=== PATIENT | female | born 1995 | race Caucasian/White ===

== ENCOUNTER 2024-03-25 13:45 | Outpatient (CLI) | payer BC, SELFPAY ==
--- OUTSIDE RECORDS SUMMARY | 2024-03-25 13:57 | XMS_ITS | Clinical Summary ---
Author Organization [facility] Address [address] [place] [address] Care Team Providers Care Cross Tie Cutter Name Role Phone Gomez Hubbard PA-C Primary Care Provider Allergies Active Allergy Reactions Criticality Noted Date Comments Sulfa Antibiotics Hives 03/15/2011 Medications Medication Sig Dispensed Refills Start Date End Date Status scopolamine (TRANSDERM) (1.5mg base/3day) patchIndications:Jasbir laws advice encounter Place 1 patch onto the skin every 72 hours. Apply to hairless area behind one ear at least 4 hours before travel. Remove old patch and change every 3 days. 4 patch 0 10/18/2015 Active triamcinolone (KENALOG) 0.1 % ointment APPLY TO AFFECTED AREA ON SKIN TWICE DAILY NEEDED FOR ITCH 3 01/02/2017 Active sertraline (ZOLOFT) 100 MG tabletIndications:Marybeth r depressive disorder, recurrent episode, mild (H24),Anxiety TAKE 1.5 TABLETS BY MOUTH DAILY 45 tablet 5 11/03/2017 Active buPROPion (WELLBUTRIN XL) 150 MG 24 hr tabletIndications:Marybeth r depressive disorder, recurrent episode, mild (H24) TAKE 1 TABLET (150 MG) BY MOUTH EVERY MORNING 90 tablet 1 11/03/2017 Active traZODone (DESYREL) 50 MG tabletIndications:Prim shyam insomnia Take 1 tablet (50 mg) by mouth nightly as needed for sleep 30 tablet 5 12/30/2017 Active levonorgestrel-ethinyl estradiol (SEASONALE) 0.15-0.03 MG per tabletIndications:Enco unter for other general counseling or advice on contraception TAKE 1 TABLET BY MOUTH DAILY 91 tablet 12/30/2017 Active rizatriptan (MAXALT) 5 MG tabletIndications:Migr brenton without aura and without status migrainosus, not intractable Take 1-2 tablets (5-10 mg) by mouth at onset of headache for migraine May repeat in 2 hours. Max 6 tablets/24 hours. 18 tablet 1 12/20/2019 Active Active Problems Problem Noted Date Diagnosed Date Major depressive disorder, recurrent episode, mi ld (H24) 08/16/2016 Anxiety 08/16/2016 Exercise-induced asthma 04/05/2013 Overview: Problem list name updated by automated process. Provider to review Seasonal allergic rhinitis 05/04/2012 CARDIOVASCULAR SCREENING; LDL GOAL LESS THAN 160 03/24/2012 Acquired pes planus of both feet 03/24/2012 Overview: Do you wish to do the replacement in the background? yes Resolved Problems Problem Noted Date Diagnosed Date Resolved Date Fracture, tibia 03/24/2012 05/04/2012 Immunizations Name Administration Dates Next Due DTAP (<7y) 05/11/1999, 5,1994,1993,1994 HEPA 10/18/2015,02/27/2009 HIB (PRP-T) 06/19/1995, 4,1994,1993 HPV 01/14/2017,04/21/2015,02/27/2009 HepB 11/26/2004,04/11/2003,03/07/2003 Influenza Vaccine >6 months,quad, PF 10/18/2015 MMR 05/11/1999,06/22/1995,06/19/1995 Meningococcal ACWY (Menactra??) 05/04/2012 Poliovirus, inactivated (IPV) 05/10/1999 ,06/19/1995,1994,1993 TDAP (Adacel,Boostrix) 11/18/2005 TDAP Vaccine (Adacel) 10/18/2015 Typhoid IM 10/18/2015 Family History Medical History Relation Comments Cerebrovascular Disease Maternal Grandfather Diabetes Maternal Grandfather Other Cancer Maternal Grandfather Pancreatic Cancer Kidney Disease Mother Frequent Kidney stones Cancer - colorectal Paternal Grandfather Colon Cancer Paternal Grandfather Cerebrovascular Disease Paternal Grandmother Diabetes Paternal Grandmother Relation Status Comments Father Alive Maternal Grandfather Alive Maternal Grandmother Alive Mother Alive Paternal Grandfather Paternal Grandmother Alive Sister Alive Social History Tobacco Use Types Packs/Day Years Used Date Smoking Tobacco: Never Smokeless Tobacco: Never Alcohol Use Standard Drinks/Week Comments Yes 0 (1 standard drink = 0.6 oz pur e alcohol) A little bit PHQ-2 Answer Date Recorded PHQ-2 Score 4 10/06/2018 Adolescent Education Answer Date Record ed Getting School Help Needed Not on file 07/05 Sex and Gender Information Value Date Recorded Sex Assigned at Not on file Gender Identity Not on file Sexual Orientation Not on file Last Filed Vital Signs Vital Sign Reading Time Taken Comments Blood Pressure 108/76 07/11/2017 3:42 PM CDT Pulse 76 07/11/2017 3:42 PM CDT Temperature 36.8 ??C (98.3 ??F) 07/11/2017 3:42 PM CD T Respiratory Rate 20 07/11/2017 3:42 PM CDT Oxygen Saturation 98% 11/01/2014 2:15 PM ENVIRONMENTAL ASSOCIATE Inhaled Oxygen Concentration - - Weight 79.8 kg (176 lb) 07/11/2017 3:42 PM CDT Height 161.3 cm (5' 3.5) 01/14/2017 5:50 PM CDT Body Mass Index 30.69 01/14/2017 5:50 PM CDT Plan of Treatment Not on file Medical Devices Implanted Type Area Mexican Food Cook Device Identifier Shelf Expiration Date Model / Serial / Lot Imp [place] Biorapt 2.3mm S&N [id number] Implanted:Qty: 3 on 11/01/2014 by Rudy Nava MD at [facility] Right: Hip [employer] 07/29/2019 [id number] / / [id number] Care Teams Cross Tie Cutter Relationship Specialty Start Date End Date Gomez Hubbard PA-C PCP - General Physician Lawyer Criminal - Medical 10/25/19
--- OUTSIDE RECORDS SUMMARY | 2024-03-25 13:58 | XMS_ITS | Encounter Summary ---
Author Organization [facility] Address [address] [place] [address]. [place] [address] Care Team Providers Care Organizational Development Specialist Name Role Phone Nicole Foreman MD Primary Care Provider Gomez Hubbard PA-C Unavailable + [phone] Gomez Hubbard PA-C Unavailable + [phone] Gomez Hubbard PA-C Primary Care Provider Reason for Visit * Reason Onset Date Comments Refill Request 08/19/2017 Encounter Details Date Type Department Care Team (Late st Contact Info) Description 08/19/2017 MyC Refill [address], [address] [place] [address] [place] [address] [place], [place] [id number] Refill Request Social History Tobacco Use Types Packs/Day Years Used Date Smoking Tobacco: Never Smokeless Tobacco: Never Alcohol Use Standard Drinks/Week Comments Yes 0 (1 standard drink = 0.6 oz pur e alcohol) A little bit Sex and Gender Information Value Date Recorded Sex Assigned at Not on file Gender Identity Not on file Sexual Orientation Not on file documented as of this encounter Miscellaneous Notes * Telephone Encounter - Giovana Blake RN - 08/20/2017 10:59 AM CST PHQ-9 SCORE 01/14/2017 07/11/2017 08/20/2017 Total Score 13 10 6 Note from 08-15-17 ...I did want to see her in a month or so after starting Wellbutrin. We could dophone visit or a PHQ update is fine on phone. If it is higher than 10 I'd like the visit please. ? Thanks, Gomez Pt called in, out of meds past 5 days, wanted office visit if score over 10, now 6 today Route to covering provider to review and advise Obed RN Nurse Triage INEEDLE SHIRRER * Telephone Encounter - Manuela Tapia RN - 08/19/2017 6:[facility] Original authorizing provider: MD Greta Galindo would like a refill of the following medications: sertraline (ZOLOFT) 100 MG tablet [Nicole Foreman MD] Preferred pharmacy: [facility] [address] [place] [address] Comment: INEEDLE SHIRRER documented in this encounter Plan of Treatment Not on file documented as of this encounter Visit Diagnoses Diagnosis Major depressive disorder, recurrent episode, mild (H24) Major depressive disorder, recurrent episode, mild Anxiety Anxiety state, unspecified documented in this encounter Additional Health Concerns Assessment Noted Time PHQ-9 Depression Total Score: 6 08/20/20 17 10:59 AM MULTINEEDLE SHIRRER documented as of this encounter Care Teams Organizational Development Specialist Relationship Specialty Start Date End Date Nicole Foreman MD PCP - General Family Practice 03/24/12 10/24/19 Gomez Hubbard PA-C [address] [place] [address] PCP - Assigned PCP 10/30/14 12/01/18 Gomez Hubbard PA-C [address] SON[address] MATTHEWS [address] PCP - General Physician Snack Stewardess - Medical 10/25/19 Gomez Hubbard PA-C [address] SONIA MATTHEWS [address] Assigned PCP 10/30/14 04/12/21 documented as of this encounter
--- OUTSIDE RECORDS SUMMARY | 2024-03-25 13:58 | XMS_ITS | Encounter Summary ---
Author Organization [facility] Address [address] [place] [address]. [place] [address] Care Team Providers Care Fire Medic Name Role Phone Nicole Foreman MD Primary Care Provider Gomez Hubbard PA-C Unavailable + [phone] Gomez Hubbard PA-C Unavailable + [phone] Gomez Hubbard PA-C Primary Care Provider Reason for Visit * Reason Onset Date Comments Refill Request 11/04/2016 Encounter Details Date Type Department Care Team (Late st Contact Info) Description 11/04/2016 MyC Refill [address], [address] [place] [address] [place] [address] [place], [place] [id number] Refill Request Social History Tobacco Use Types [...] encounter Miscellaneous Notes * Telephone Encounter - Manuela Tapia RN - 11/06/2016 8:26 AM CST Duplicate request. See previous request. Manuela Tapia RN CELL BINDER * Telephone Encounter - Nicole Foreman MD - 11/04/2016 3:45 PM FUEL CELL BINDER Due for std screen CELL BINDER * Telephone Encounter - Giovana Blake RN - 11/04/2016 9:46 AM CST levonorgestrel-ethinyl estradiol (SEASONALE) 0.15-0.03 MG per tablet 91 tablet 0 09/19/2014 Last Written Prescription Date: 09.19.14 Last Fill Quantity: 91, # refills: 0 Last Office Visit with [facility] or [facility] prescribing provider: 08/16/16 Future Office visit: Routing refill request to provider for review/approval because: Last rx 09.19.14 CELL BINDER * Telephone Encounter - Giovana Blake RN - 11/04/2016 9:45 AM [facility] Original authorizing provider: MD Greta Galindo would like a refill of the following medications: levonorgestrel-ethinyl estradiol (SEASONALE) 0.15-0.03 MG per tablet [Nicole Foreman MD] Preferred pharmacy: [facility] [id number] [place] [address] Comment: CELL BINDER documented in this encounter Plan of Treatment Not on file documented as of this encounter Visit Diagnoses Diagnosis Seasonal allergic rhinitis Allergic rhinitis, cause unspecified documented in this encounter Additional Health Concerns Assessment Noted Time PHQ-9 Depression Total Score: 8 08/17/20 16 2:29 PM FUEL CELL BINDER documented as of this encounter Care Teams Fire Medic Relationship Specialty Start Date End Date Nicole Foreman MD PCP - General Family Practice 03/24/12 10/24/19 Gomez Hubbard PA-C [address] SONIA MATTHEWS [address] PCP - Assigned PCP 10/30/14 12/01/18 Gomez Hubbard PA-C [address]4024 SONIA MATTHEWS [address] PCP - General Physician Tetryl Dissolver Operator - Medical 10/25/19 Gomez Hubbard PA-C 69244 SONIA AMTTHEWS [address] Assigned PCP 10/30/14 04/12/21 documented as of this encounter
--- OUTSIDE RECORDS SUMMARY | 2024-03-25 13:58 | XMS_ITS | Referral Summary ---
Author Organization [facility] Address [address] [place] [address] Care Team Providers Care Tariff Inspector Name Role Phone Gomez Hubbard PA-C Primary [...] TDAP Vaccine (Adacel) 10/18/2015 Typhoid IM 10/18/2015 Social History Tobacco Use Types Packs/Day Years [...] CDT Oxygen Saturation 98% 11/01/2014 2:15 PM ERP MANAGER Inhaled Oxygen Concentration - - Weight 79.8 kg (176 lb) 07/11/2017 3:42 PM CDT Height 161.3 cm (5' 3.5) 01/14/2017 5:50 PM CDT Body Mass Index 30.69 01/14/2017 5:50 PM CDT Plan of Treatment Not on file Medical Devices Implanted Type Area Student Assistant Device Identifier Shelf Expiration Date Model / Serial / Lot Imp [place] Biorapt 2.3mm S&[id number] Implanted:Qty: 3 on 11/01/2014 by Rudy Nava MD at [facility] Right: Hip [employer] 07/29/2019 [id number] / / [id number] Care Teams Tariff Inspector Relationship Specialty Start Date End Date Gomez Hubbard PA-C PCP - General Physician Local Sales Associate - Medical 10/25/19
--- OUTSIDE RECORDS SUMMARY | 2024-03-25 13:58 | XMS_ITS | Encounter Summary ---
Author Organization [facility] Address [address] [place] [address] Care Team Providers Care Clock Repair Technician Name Role Phone Nicole Foreman MD Primary Care Provider Gomez Hubbard PA-C Unavailable [phone] Gomez Hubbard PA-C Unavailable [phone] Gomez Hubbard PA-C Primary Care Provider Encounter Details Date Type Department Care Team (Late st Contact Info) Description 02/04/2018 [facility] Medical Advice [facility], [address] [place] [address] Suasn aPlacios MA Social History Tobacco Use Types Packs/Day Years Used Date Smoking Tobacco: Never Smokeless Tobacco: Never Alcohol Use Standard Drinks/Week Comments Yes 0 (1 standard drink = 0.6 oz pur e alcohol) A little bit Sex and Gender Information Value Date Recorded Sex Assigned at Not on file Gender Identity Not on file Sexual Orientation Not on file documented as of this encounter Plan of Treatment Not on file documented as of this encounter Visit Diagnoses Not on filedocumented in this encounter Additional Health Concerns Assessment Noted Time PHQ-9 Depression Total Score: 10 11/04/ 018 8:12 AM SENIOR SUSTAINABILITY CONSULTANT documented as of this encounter Care Teams Clock Repair Technician Relationship Specialty Start Date End Date Nicole Foreman MD PCP - General Family Practice 03/24/12 10/24/19 Gomez Hubbard PA-C [address] SONIA MATTHEWS [address] PCP - Assigned PCP 10/30/14 12/01/18 Gomez Hubbard PA-C 36622 SONIA MATTHEWS [address] PCP - General Physician Senior Design Engineering Specialist - Medical 10/25/19 Gomez Hubbard PA-C 49412 SONIA MATTHEWS [address] Assigned PCP 10/30/14 04/12/21 documented as of this encounter
--- OUTSIDE RECORDS SUMMARY | 2024-03-25 13:58 | XMS_ITS | Encounter Summary ---
Author Organization [facility] Address [address] [place] [address]. [place] [address] Care Team Providers Care Motor Vehicle Inspector Name Role Phone Nicole Foreman MD Primary Care Provider Gomez Hubbard PA-C Unavailable + [phone] Gomez Hubbard PA-C Unavailable + [phone] Gomez Hubbard PA-C Primary Care Provider Reason for Visit * Reason Comments Medication Refill Sertraline Encounter Details Date Type Department Care Team (Late st Contact Info) Description 05/07/2017 [facility] [address] [facility], [address] [place] [address] Gomez Hubbard PA-C [address] [place] [address] Medication Refill (Sertraline) Social History Tobacco Use Types Packs/Day Years [...] encounter Miscellaneous Notes * Telephone Encounter - Millicent George RN - 05/07/2017 9:34 AM CDT Sertraline Last Written Prescription Date: 01/14/2017 Last Fill Quantity: 180, # refills: 0 Last Office Visit with [facility] [place] care [place]: 01/14/2017 Last PHQ-9 score on record= PHQ-9 SCORE 01/14/2017 Total Score 13 Routing refill request to provider for review/approval because: Patient needs to be seen because: Advised to f/u after increased medication dosage but did not. Ok for limited supply? 01/14/2017 MICHAEL note: 2. Anxiety Will increase Zoloft from 100 mg to 150 mg. Mental health referral placed for patient to see therapy as she sees fit. Discussed options of Wellbutrin in the future as needed as an add on. Follow up in three months, or sooner if any issues. - sertraline (ZOLOFT) 100 MG tablet; Take 1.5 tablets (150 mg) by mouth daily Dispense: 180 tablet;Refill: 0 Millicent Syed RN, BSN, PHN [facility] RN documented in this encounter Plan of Treatment Not on file documented as of this encounter Visit Diagnoses Diagnosis Major depressive disorder, recurrent episode, mild (H24) Major depressive disorder, recurrent episode, mild Anxiety Anxiety state, unspecified documented in this encounter Additional Health Concerns Assessment Noted Time PHQ-9 Depression Total Score: 13 017 7:12 AM CDT documented as of this encounter Care Teams Motor Vehicle Inspector Relationship Specialty Start Date End Date Nicole Foreman MD PCP - General Family Practice 03/24/12 10/24/19 Gomez Hubbard PA-C [address]141 SONIA MATTHEWS [address] PCP - Assigned PCP 10/30/14 12/01/18 Gomez Hubbard PA-C 25553 SONIA MATTHEWS [address] PCP - General Physician Kindergarten Assistant - Medical 10/25/19 Gomez Hubbard PA-C [address]386 SONIA MATTHEWS [address] Assigned PCP 10/30/14 04/12/21 documented as of this encounter
--- OUTSIDE RECORDS SUMMARY | 2024-03-25 13:58 | XMS_ITS | Encounter Summary ---
Author Organization [facility] Address [address] [place] [address] Care Team Providers Care Degree Clerk Name Role Phone Nicole oFreman MD Primary Care Provider Gomez Hubbard PA-C Unavailable + Gomez Hubbard PA-C Unavailable [phone] Gomez Hubbard PA-C Primary Care Provider Encounter Details Date Type Department Care Team (Late st Contact Info) Description 12/30/2017 [facility] [place] Advice [facility], [address] [place] [address] Giovana Blake, RN Social History Tobacco Use Types Packs/Day Years [...] Total Score: 10 11/04/ 018 8:12 AM CABLE INSTALLATION TECHNICIAN documented as of this encounter Care Teams Degree Clerk Relationship Specialty Start Date End Date Nicole Foreman MD PCP - General Family Practice 03/24/12 10/24/19 Gomez Hubbard PA-C [address] SONIA MATTHEWS [address] PCP - Assigned PCP 10/30/14 12/01/18 Gomez Hubbard PA-C 24150 SONIA MATTHEWS [address] PCP - General Physician Hogshead Press Operator - Medical 10/25/19 Gomez Hubbard PA-C 49611 SONIA MATTHEWS [address] Assigned PCP 10/30/14 04/12/21 documented as of this encounter
--- OUTSIDE RECORDS SUMMARY | 2024-03-25 13:58 | XMS_ITS | Encounter Summary ---
Author Organization [facility] Address [address] [place] [address]. [place] [address] Care Team Providers Care Shirt Finisher Name Role Phone Nicole Foreman MD Primary Care Provider Gomez Hubbard PA-C Unavailable + [phone] Gomez Hubbard PA-C Unavailable + [phone] Gomez Hubbard PA-C Primary Care Provider Reason for Visit * Reason Onset Date Comments Medication Refill 04/02/2018 levonorgestrel -ethinyl estradiol (SEASONALE) 0.15- 0.03 MG per tablet Encounter Details Date Type Department Care Team (Late st Contact Info) Description 04/02/[address], [address] [place] [address] Gomez Hubbard PA-C [address] [place] [address] Medication Refill (levonorgestrel-ethinyl estradiol (SEASONALE) 0.15-0.03 MG per tablet) Social History Tobacco Use Types Packs/Day Years [...] encounter Miscellaneous Notes * Telephone Encounter - Susan Palacios MA - 04/06/2018 12:25 PM CDT Spoke with patient, she is not taking the Seasonale, so she does not need a refill on this medication. Asked her about coming in for Depression follow up and she said she was on a work phone call so she will call back. Susan Palacios MA * Telephone Encounter - Susan Palacios MA - 04/02/2018 4:10 PM CDT LMTRC to clinic. Susan Palacios MA * Telephone Encounter - Gomez Hubbard PA-C - 04/02/2018 4:03 PM CDT Looks like due for PAP. No refill until this is done or records sent. She had last one done at [facility]. We also want to see her for depression follow up. Gomez * Telephone Encounter - Vero Sterling RN - 04/02/2018 11:28 AM CDT .Routing refill request to provider for review/approval because: Sheree given x1 and patient did not follow up, please advise Patient needs to be seen because: Past due for follow up. Staff has been contacting her via [employer] by phone. Pt is reading [employer] but not responding. Pt due for px and med check Vero Sterling RN, BSN * Telephone Encounter - Ana Kelly - 04/02/2018 9:31 AM CDT Requested Prescriptions Pending Prescriptions Disp Refills ??? levonorgestrel-ethinyl estradiol (SEASONALE) 0.15-0.03 MG per tablet [Pharmacy Med Name: LEVONOR-ETH ESTRAD 0.15-0.03] 91 tablet 0 Last Written Prescription Date: 12/30/17 Last Fill Quantity: 91, # refills: 0 Last Office Visit: 11/03/2017 Future Office Visit: Sig: TAKE 1 TABLET BY MOUTH DAILY Contraceptives Protocol Passed 04/02/2018 1:37 AM Passed - Patient is not a current smoker if age is 35 or older Passed - Recent (12 mo) or future (30 days) visit within the authorizing provider's specialty Patient had office visit in the last 12 months or has a visit in the next 30 days with authorizing provider or within the authorizing provider's specialty. See Patient Info tab in inbasket, or Choose Columns in Meds & Orders section of the refill encounter. Passed - No active on record Passed - No positive test in past 12 months documented in this encounter Plan of Treatment Not on file documented as of this encounter Visit Diagnoses Diagnosis Encounter for other general counseling or advice on contraception documented in this encounter Additional Health Concerns Assessment Noted Time PHQ-9 Depression Total Score: 10 018 8:12 AM CLUB MANAGER documented as of this encounter Care Teams Shirt Finisher Relationship Specialty Start Date End Date Nicole Foreman MD PCP - General Family Practice 03/24/12 10/24/19 Gomez Hubbard PA-C [address] SONIA MATTHEWS [address] PCP - Assigned PCP 10/30/14 12/01/18 Gomez Hubbard PA-C 73660 SONIA MATTHEWS [address] PCP - General Physician On Site Manager - Medical 10/25/19 Gomez Hubbard PA-[place] [address] [place] [address] Assigned PCP 10/30/14 04/12/21 documented as of this encounter
--- OUTSIDE RECORDS SUMMARY | 2024-03-25 13:58 | XMS_ITS | Encounter Summary ---
Author Organization [facility] Address [address] [place] [address]. [place] [address] Care Team Providers Care Cloth Napping Supervisor Name Role Phone Nicole Foreman MD Primary Care Provider Gomez Hubbard PA-C Unavailable + [phone] Gomez Hubbard PA-C Unavailable + [phone] Gomez Hubbard PA-C Primary Care Provider Reason for Visit * Reason Comments Medication Refill traZODone (DESYREL) 50 MG tablet Encounter Details Date Type Department Care Team (Late st Contact Info) Description 05/15/[address], [address] [place] [address] Gomez Hubbard PA-C [address] [place] [address] Medication Refill (traZODone (DESYREL) 50 MG tablet) Social History Tobacco Use Types Packs/Day [...] Telephone Encounter - Manuela Tapia RN - 05/15/2017 2:59 PM CDT Routing refill request to provider for review/approval because: PHQ-9 > 4. Manuela Tapia RN * Telephone Encounter - Ana Kelly - 05/15/2017 9:24 AM CDT traZODone (DESYREL) 50 MG tablet Last Written Prescription Date: 03/11/17 Last Fill Quantity: 30; # refills: 1 Last [facility] [place] [facility] or [facility] prescribing provider: 01/14/2017 Last PHQ-9 score on record= PHQ-9 SCORE 01/14/2017 Total Score 13 Lab Results Component Value Date AST 27 03/15/2011 Lab Results Component Value Date ALT 14 03/15/2011 Ana Kelly XRClaudine May 15, 2017 9:24 AM documented in this encounter Plan of Treatment Not on file documented as of this encounter Visit Diagnoses Diagnosis Primary insomnia Persistent disorder of initiating or maintaining sleep documented in this encounter Additional Health Concerns Assessment Noted Time PHQ-9 Depression Total Score: 13 017 7:12 AM CDT documented as of this encounter Care Teams Cloth Napping Supervisor Relationship Specialty Start Date End Date Nicole Foreman MD PCP - General Family Practice 03/24/12 10/24/19 Gomez Hubbard PA-C [address]5072 SONIA MTATHEWS [address] PCP - Assigned PCP 10/30/14 12/01/18 Gomez Hubbard PA-C 98304 SONIA MATTHEWS [address] PCP - General Physician Flyer Builder - Medical 10/25/19 Gomez Hubbard PA-C [address] [place] [address] Assigned PCP 10/30/14 04/12/21 documented as of this encounter
--- OUTSIDE RECORDS SUMMARY | 2024-03-25 13:58 | XMS_ITS | Encounter Summary ---
Author Organization [facility] Address [address] [place] [address] Care Team Providers Care Research Project Coordinator Name Role Phone Nicole Foreman MD Primary Care Provider Gomez Hubbard PA-C Unavailable + [phone] Gomez Hubbard PA-C Primary Care Provider Encounter Details Date Type Department Care Team (Late st Contact Info) Description 07/12/2019 [facility] [place] Advice [address], [address] [place] [address] Rhonda Jones CMA Social History Tobacco Use Types Packs/Day Years Used Date Smoking Tobacco: Never Smokeless Tobacco: Never Alcohol Use Standard Drinks/Week Comments Yes 0 (1 standard drink = 0.6 oz pur e alcohol) A little bit PHQ-2 Answer Date Recorded PHQ-2 Score 4 10/06/2018 Sex and Gender Information Value Date Recorded Sex Assigned at Not on file Gender Identity Not on file Sexual Orientation Not on file documented as of this encounter Plan of Treatment Not on file documented as of this encounter Visit Diagnoses Not on filedocumented in this encounter Additional Health Concerns Assessment Noted Time PHQ-9 Depression Total Score: 10 018 8:12 AM SHOES SALESPERSON documented as of this encounter Care Teams Research Project Coordinator Relationship Specialty Start Date End Date Nicole Foreman MD PCP - General Family Practice 03/24/12 10/24/19 Gomez Hubbard PA-C 06171 SONIA MATTHEWS [address] PCP - General Physician Money Market Dealer - Medical 10/25/19 Gomez Hubbard PA-C 31762 SONIA MATTHEWS 68892 Assigned PCP 10/30/14 04/12/21 documented as of this encounter
--- OUTSIDE RECORDS SUMMARY | 2024-03-25 13:58 | XMS_ITS | Encounter Summary ---
Author Organization [facility] Address [address] [place] [address]. [place] [address] Care Team Providers Care Senior Procurement Manager Name Role Phone Nicole Foreman MD Primary Care Provider Gomez Hubbard PA-C Unavailable + [phone] Gomez Hubbard PA-C Unavailable + [phone] Gomez Hubbard PA-C Primary Care Provider Reason for Visit * Reason Onset Date Comments Refill Request 11/04/2016 Control Encounter Details Date Type Department Care Team (Late st Contact Info) Description 11/04/2016 MyC Refill [address], [address] [place] [address] [place] [address] [place] [address] Refill Request ( Control) Social History Tobacco Use Types Packs/Day Years [...] Telephone Encounter - Giovana Blake RN - 11/05/2016 11:57 AM CST LM to CB, needs appt for labs Giovana Blake RN, BS Clinical Nurse Triage . INING DEPARTMENT SUPERVISOR * Telephone Encounter - Gomez Hubbard PA-C - 11/05/2016 10:51 AM MACHINING DEPARTMENT SUPERVISOR Have her come in for lab STD screen please then we can do Rx. PAP is up to date. Looks like she will be due this spring for med check anyway. I'll restart her with 90 day supply and we can do med check for everything then. Gomez INING DEPARTMENT SUPERVISOR * Telephone Encounter - Manuela Tapia RN - 11/05/2016 8:04 AM CST [place] Last Written Prescription Date: 01/24/2016 Last Fill Quantity: 91, # refills: 0 [facility] Office [facility] prescribing provider: 08/16/2016 Routing refill request to provider for review/approval because: A break in medication Patient due for -CHLAMYDIA screening Manuela Tapia RN INING DEPARTMENT SUPERVISOR * Telephone Encounter - Manuela Tapia RN - 11/05/2016 8:02 AM C[facility]Message [facility]: Original authorizing provider: MD Greta Galindomell would like a refill of the following medications: levonorgestrel-ethinyl estradiol (SEASONALE) 0.15-0.03 MG per tablet [Nicole Foreman MD] Preferred pharmacy: [facility] [address] [place] [address] Comment: INING DEPARTMENT SUPERVISOR documented in this encounter Plan of Treatment Not on file documented as of this encounter Visit Diagnoses Diagnosis Encounter for other general counseling or advice on contraception- Primary Seasonal allergic rhinitis Allergic rhinitis, cause unspecified documented in this encounter Additional Health Concerns Assessment Noted Time PHQ-9 Depression Total Score: 8 08/17/20 16 2:29 PM MACHINING DEPARTMENT SUPERVISOR documented as of this encounter Care Teams Senior Procurement Manager Relationship Specialty Start Date End Date Nicole Foreman MD PCP - General Family Practice 03/24/12 10/24/19 Gomez Hubbard PA-C 62139 SONIA MATTHEWS 95001 PCP - Assigned PCP 10/30/14 12/01/18 Gomez Hubbard PA-C 29065 SONIA MATTHEWS [address]886 PCP - General Physician Meter Maker - Medical 10/25/19 Gomez Hubbard PA-C 82604 SONIA MATTHEWS 71128 Assigned PCP 10/30/14 04/12/21 documented as of this encounter
--- OUTSIDE RECORDS SUMMARY | 2024-03-25 13:58 | XMS_ITS | Encounter Summary ---
Author Organization [facility] Address [address] [place] [address] Care Team Providers Care Cashier Checker Name Role Phone Nicole Foreman MD Primary Care Provider Gomez Hubbard PA-C Unavailable +[phone] Gomez Hubbard PA-C Unavailable + [phone] Gomez Hubbard PA-C Primary Care Provider Encounter Details Date Type Department Care Team (Latest Contact Info) Description 01/14/2017 Historic Results Social History Tobacco Use Types Packs/Day Years [...] documented as of this encounter Care Teams Cashier Checker Relationship Specialty Start Date End Date Nicole Foreman MD PCP - General Family Practice 03/24/12 10/24/19 Gomez Hubbard PA-C 64798 SONIA MATTHEWS 55481 PCP - Assigned PCP 10/30/14 12/01/18 Gomez Hubbard PA-C 01802 SONIA MATTHEWS 24152 PCP - General Physician Wet Cleaner Machine - Medical 10/25/19 Gomez Hubbard PA-C 17283 SONIA MATTHEWS 94576 Assigned PCP 10/30/14 04/12/21 documented as of this encounter
[2024-03-25 20:12] LABS: Chlamydia DNA Amplified* NOT DETECTED (No Detected); GC DNA Amplified* NOT DETECTED (No Detected)
== END 2024-03-25 13:46 | disposition home or self-care (01) ==
PROVIDERS: Visit Provider Physician Assistant
DX: Z01.419 Encounter for gynecological examination (general) (routine) without abnormal findings (principal); Z12.4 Encounter for screening for malignant neoplasm of cervix; Z11.3 Encounter for screening for infections with a predominantly sexual mode of transmission
CPT/HCPCS: 87491; 87591

== ENCOUNTER 2024-03-30 07:55 | Outpatient (CLI) | payer BC, SELFPAY ==
--- OUTSIDE RECORDS SUMMARY | 2024-04-02 10:16 | XMS_ITS | Encounter Summary ---
Author Organization [facility] Address [address] [place] [address] Care Team Providers Care Commercial Lease Administrator Name Role Phone Nicole Foreman MD Primary Care Provider Gomez Hubbard PA-C Unavailable + Gomez Hubbard PA-C Unavailable +[phone] Gomez Hubbard PA-C Primary Care Provider Encounter Details Date Type Department Care Team (Late st Contact Info) Description 02/04/2018 [facility] Medical Advice [facility], [address] [place] [address] Susan Palaciso MA Social History Tobacco Use Types Packs/Day [...] Total Score: 10 11/04/ 018 8:12 AM WELDING MACHINE TENDER documented as of this encounter Care Teams Commercial Lease Administrator Relationship Specialty Start Date End Date Nicole Foreman MD PCP - General Family Practice 03/24/12 10/24/19 Gomez Hubbard PA-C 48778 SONIA MATTHEWS 52344 PCP - Assigned PCP 10/30/14 12/01/18 Gomez Hubbard PA-C 22905 SONIA MATTHEWS [address]308 PCP - General Physician Clinical Microbiologist - Medical 10/25/19 Gomez Hubbard PA-C 97922 SONIA MATTHEWS 93276 Assigned PCP 10/30/14 04/12/21 documented as of this encounter
--- OUTSIDE RECORDS SUMMARY | 2024-04-02 10:16 | XMS_ITS | Encounter Summary ---
Author Organization [facility] Address [address] [place] [address] Care Team Providers Care Radio Division Captain Name Role Phone Nicole Foreman MD Primary Care Provider Gomez Hubbard PA-C Unavailable + Gomez Hubbard PA-C Unavailable [phone] Gomez Hubbard PA-C Primary Care Provider Encounter Details Date Type Department Care Team (Late st Contact Info) Description 12/30/2017 [facility] [place] [facility], [address] [place] [address] Giovana Blake, RN Social History [...] Total Score: 10 11/04/ 018 8:12 AM CUTTER OPERATOR ASBESTOS SHINGLE documented as of this encounter Care Teams Radio Division Captain Relationship Specialty Start Date End Date Nicole Foreman MD PCP - General Family Practice 03/24/12 10/24/19 Gomez Hubbard PA-C 12863 SONIA MATTHEWS 22146 PCP - Assigned PCP 10/30/14 12/01/18 Gomez Hubbard PA-C 45579 SONIA MATTHEWS 16969 PCP - General Physician Narrow Fabric Calenderer - Medical 10/25/19 Gomez Hubbard PA-C 23118 SONIA MATTHEWS 82750 Assigned PCP 10/30/14 04/12/21 documented as of this encounter
--- OUTSIDE RECORDS SUMMARY | 2024-04-02 10:16 | XMS_ITS | Clinical Summary ---
Author Organization [facility] Address [address] [place] [address] Care Team Providers Care Cook Fish And Chips Name Role Phone Gomez Hubbard PA-C Primary [...] CDT Oxygen Saturation 98% 11/01/2014 2:[address] WORKER Inhaled Oxygen Concentration - - Weight 79.8 kg (176 lb) 07/11/2017 3:42 PM CDT Height 161.3 cm (5' 3.5) 01/14/2017 5:50 PM CDT Body Mass Index 30.69 01/14/2017 5:50 PM CDT Plan of Treatment Not on file Medical Devices Implanted Type Area Zoology Technical Officer Device Identifier Shelf Expiration Date Model / Serial / Lot Imp [place] Biorapt 2.3mm [id number] Implanted:Qty: 3 on 11/01/2014 by Rudy Nava MD at [facility] Right: Hip [employer] 07/29/2019 [id number] / / [id number] Care Teams Cook Fish And Chips Relationship Specialty Start Date End Date Gomez Hubbard PA-C PCP - General Physician Compressor Station Engineer - Medical 10/25/19
--- OUTSIDE RECORDS SUMMARY | 2024-04-02 10:16 | XMS_ITS | Encounter Summary ---
Author Organization [facility] Address [address] [place] [address]. [place] [address] Care Team Providers Care Cnc Operator Name Role Phone Nicole Foreman MD Primary Care Provider Gomez Hubbard PA-C Unavailable + [phone] Gomez Hubbard PA-C Unavailable + [phone] Gomez Hubbard PA-C Primary Care Provider Reason for Visit * Reason Onset Date Comments Medication Refill 04/02/2018 levonorgestrel -ethinyl estradiol (SEASONALE) 0.15- 0.03 MG per tablet Encounter Details Date Type Department Care Team (Late st Contact Info) Description 04/02/[address], [address] [place] [address] Gomez Hubbard PA-C [address] [place] [address] Medication Refill (levonorgestrel-ethinyl estradiol (SEASONALE) [...] sent. She had last one done at [facility]. We also want to see her for depression follow up. Gomez * Telephone Encounter - Vero Sterling RN - 04/02/2018 11:28 AM CDT .Routing refill request to provider for review/approval because: Sheree given x1 and patient did not follow up, please advise Patient needs to be seen because: Past due for follow up. Staff has been contacting her via [employer] by phone. Pt is reading [place] but not responding. Pt due for px [...] Depression Total Score: 10 018 8:12 AM CALENDER MACHINE OPERATOR documented as of this encounter Care Teams Cnc Operator Relationship Specialty Start Date End Date Nicole Foreman MD PCP - General Family Practice 03/24/12 10/24/19 Gomez Hubbard PA-C 55219 SONIA MATTHEWS 68114 PCP - Assigned PCP 10/30/14 12/01/18 Gomez Hubbard PA-C 49624 SONIA MATTHEWS 69260 PCP - General Physician Incident Manager - Medical 10/25/19 Gomez Hubbard PA-C [address] [place] [address] Assigned PCP 10/30/14 04/12/21 documented as of this encounter
--- OUTSIDE RECORDS SUMMARY | 2024-04-02 10:16 | XMS_ITS | Encounter Summary ---
Author Organization [facility] Address [address] [place] [address] Care Team Providers Care Automation Sales Manager Name Role Phone Nicole Foreman MD Primary Care Provider Gomez Hubbard PA-C Unavailable + [phone] Gomez Hubbard PA-C Primary Care Provider Encounter Details Date Type Department Care Team (Late st Contact Info) Description 07/12/2019 [facility] Medical Advice [address], [address] [place] [address] Rhonda Jones CMA Social History [...] Depression Total Score: 10 018 8:12 AM GRAVITY METER OPERATOR documented as of this encounter Care Teams Automation Sales Manager Relationship Specialty Start Date End Date Nicole Foreman MD PCP - General Family Practice 03/24/12 10/24/19 Gomez Hubbard PA-C 49561 SONIA MATTHEWS 13535 PCP - General Physician Data Report Analyst - Medical 10/25/19 Gomez Hubbard PA-C 01920 SONIA MATTHEWS 27079 Assigned PCP 10/30/14 04/12/21 documented as of this encounter
--- OUTSIDE RECORDS SUMMARY | 2024-04-02 10:16 | XMS_ITS | Referral Summary ---
Author Organization [facility] Address [address] [place] [address] Care Team Providers Care Interstate Bus Dispatcher Name Role Phone Gomez Hubbard PA-C Primary [...] CDT Oxygen Saturation 98% 11/01/2014 2:15 PM MULTI PURPOSE MACHINE OPERATOR Inhaled Oxygen Concentration - - Weight 79.8 kg (176 lb) 07/11/2017 3:42 PM CDT Height 161.3 cm (5' 3.5) 01/14/2017 5:50 PM CDT Body Mass Index 30.69 01/14/2017 5:50 PM CDT Plan of Treatment Not on file Medical Devices Implanted Type Area Cooker Helper Device Identifier Shelf Expiration Date Model / Serial / Lot Imp [place] Biorapt 2.3mm [id number] Implanted:Qty: 3 on 11/01/2014 by Rudy Nava MD at [facility] Right: Hip [employer] 07/29/2019 [id number] / / [id number] Care Teams Interstate Bus Dispatcher Relationship Specialty Start Date End Date Gomez Hubbard PA-C PCP - General Physician Cnc Manufacturing Engineer - Medical 10/25/19
--- OUTSIDE RECORDS SUMMARY | 2024-04-02 10:17 | XMS_ITS | Encounter Summary ---
Author Organization [facility] Address [address] [place] [address] Care Team Providers Care Medical Coding Technician Name Role Phone Nicole Foreman MD Primary Care Provider Gomez Hubbard PA-C Unavailable [phone] Gomez Hubbard PA-C Unavailable + [phone] Gomez Hubbard PA-C Primary Care Provider Encounter [...] documented as of this encounter Care Teams Medical Coding Technician Relationship Specialty Start Date End Date Nicole Formean MD PCP - General Family Practice 03/24/12 10/24/19 Gomez Hubbard PA-C 62075 SONIA MATTHEWS 71257 PCP - Assigned PCP 10/30/14 12/01/18 Gomez Hubbard PA-C 38305 SONIA MATTHEWS 97040 PCP - General Physician Contact Lens Inspector - Medical 10/25/19 Gomez Hubbard PA-C 70132 SONIA MATTHEWS 81011 Assigned PCP 10/30/14 04/12/21 documented as of this encounter
--- OUTSIDE RECORDS SUMMARY | 2024-04-02 10:17 | XMS_ITS | Encounter Summary ---
Author Organization [facility] Address [address] [place] [address]. [place] [address] Care Team Providers Care Pilot Boat Deckhand Name Role Phone Nicole Foreman MD Primary Care Provider Gomez Hubbard PA-C Unavailable + [phone] Gomez Hubbard PA-C Unavailable + [phone] Gomez Hubbard PA-C Primary Care Provider Reason for Visit * Reason Comments Medication Refill Sertraline Encounter Details Date Type Department Care Team (Late st Contact Info) Description 05/07/2017 [facility] [address] [facility], [address] [place] [address] Gomez Hubbard PA-C [address] [place] [address] Medication Refill (Sertraline) Social History Tobacco Use [...] # refills: 0 Last Office Visit with [facility] primary care provider: 01/14/2017 Last PHQ-9 score [...] tablet;Refill: 0 Millicent Syed RN, BSN, PHN [facility] RN documented in this encounter Plan of Treatment Not on file documented as of this encounter Visit Diagnoses Diagnosis Major depressive disorder, recurrent episode, mild (H24) Major depressive disorder, recurrent episode, mild Anxiety Anxiety state, unspecified documented in this encounter Additional Health Concerns Assessment Noted Time PHQ-9 Depression Total Score: 13 017 7:12 AM CDT documented as of this encounter Care Teams Pilot Boat Deckhand Relationship Specialty Start Date End Date Nicole Foreman MD PCP - General Family Practice 03/24/12 10/24/19 Gomez Hubbard PA-C 19276 SONIA MATTHEWS 82883 PCP - Assigned PCP 10/30/14 12/01/18 Gomez Hubbard PA-C 64544 SONIA MATTHEWS 25013 PCP - General Physician Comfort Filler - Medical 10/25/19 Gomez Hubbard PA-C 48975 SONIA MATTHEWS 49991 Assigned PCP 10/30/14 04/12/21 documented as of this encounter
--- OUTSIDE RECORDS SUMMARY | 2024-04-02 10:17 | XMS_ITS | Encounter Summary ---
Author Organization [facility] Address [address] [place] [address]. [place] [address] Care Team Providers Care Special Library Librarian Name Role Phone Nicole Foreman MD Primary Care Provider Gomez Hubbard PA-C Unavailable + [phone] Gomez Hubbard PA-C Unavailable + [phone] Gomez Hubbard PA-C Primary Care Provider Reason for Visit * Reason Comments Medication Refill traZODone (DESYREL) 50 MG tablet Encounter Details Date Type Department Care Team (Late st Contact Info) Description 05/15/[address], [address] [place] [address] Gomez Hubbard PA-C [address] [place] [address] Medication Refill (traZODone (DESYREL) 50 [...] # refills: 1 Last Office Visit with [facility], [facility] or [facility] prescribing provider: 01/14/2017 Last PHQ-9 score on [...] documented as of this encounter Care Teams Special Library Librarian Relationship Specialty Start Date End Date Nicole Foreman MD PCP - General Family Practice 03/24/12 10/24/19 Gomez Hubbard PA-C 85106 SONIA MATTHEWS 14181 PCP - Assigned PCP 10/30/14 12/01/18 Gomez Hubbard PA-C 24872 SONIA MATTHEWS [address]4935 PCP - General Physician Vocational Rehabilitation Teacher - Medical 10/25/19 Gomez Hubbard PA-C [address] [place] [address] Assigned PCP 10/30/14 04/12/21 documented as of this encounter
--- OUTSIDE RECORDS SUMMARY | 2024-04-02 10:17 | XMS_ITS | Encounter Summary ---
Author Organization [facility] Address [address] [place] [address]. [place] [address] Care Team Providers Care Produce Assistant Name Role Phone Nicole Foreman MD Primary Care Provider Gomez Hubbard PA-C Unavailable + [phone] Gomez Hubbard PA-C Unavailable + [phone] Gomez Hubbard PA-C Primary Care Provider Reason for Visit * Reason Onset Date Comments Refill Request 11/04/2016 Encounter Details Date Type Department Care Team (Late st Contact Info) Description 11/04/2016 MyC Refill [address], [address] [place] [address] [place] [address] [place], [place] [id number] Refill Request Social History Tobacco Use Types [...] request. See previous request. Manuela Tapia RN AIN DRIER * Telephone Encounter - Nicole Foreman MD - 11/04/2016 3:45 PM CURTAIN DRIER Due for std screen AIN DRIER * Telephone Encounter - Giovana Blake RN - 11/04/2016 9:46 AM CST levonorgestrel-ethinyl estradiol (SEASONALE) 0.15-0.03 MG per tablet 91 tablet 0 09/19/2014 Last Written Prescription Date: 09.19.14 Last Fill Quantity: 91, # refills: 0 Last Office Visit with [facility] or [facility] prescribing provider: 08/16/16 Future Office visit: Routing refill request to provider for review/approval because: Last rx 09.19.14 AIN DRIER * Telephone Encounter - Giovana Blake RN - 11/04/2016 9:45 AM [facility] Original authorizing provider: MD Greta Galindo would like a refill of the following medications: levonorgestrel-ethinyl estradiol (SEASONALE) 0.15-0.03 MG per tablet [Nicole Foreman MD] Preferred pharmacy: [facility] [address] [place] [address] Comment: AIN DRIER documented in this encounter Plan of Treatment Not on file documented as of this encounter Visit Diagnoses Diagnosis Seasonal allergic rhinitis Allergic rhinitis, cause unspecified documented in this encounter Additional Health Concerns Assessment Noted Time PHQ-9 Depression Total Score: 8 08/17/20 16 2:29 PM CURTAIN DRIER documented as of this encounter Care Teams Produce Assistant Relationship Specialty Start Date End Date Nicole Foreman MD PCP - General Family Practice 03/24/12 10/24/19 Gomez Hubbard PA-C 51403 SONIA MATTHEWS 01798 PCP - Assigned PCP 10/30/14 12/01/18 Gomez Hubbard PA-C 13905 SONIA MATTHEWS [address]68 PCP - General Physician Crm Dynamics Developer - Medical 10/25/19 Gomez Hubbard PA-C 66456 SONIA MATTHEWS 38574 Assigned PCP 10/30/14 04/12/21 documented as of this encounter
--- OUTSIDE RECORDS SUMMARY | 2024-04-02 10:17 | XMS_ITS | Encounter Summary ---
Author Organization [place] Address [address] [place] [address]. [place] [address] Care Team Providers Care Union Steward Name Role Phone Nicole Foreman MD Primary Care Provider Gomez Hubbard PA-C Unavailable + [phone] Gomez Hubbard PA-C Unavailable + [phone] Gomez Hubbard PA-C Primary Care Provider Reason for Visit * Reason Onset Date Comments Refill Request 08/19/2017 Encounter Details Date Type Department Care Team (Late st Contact Info) Description 08/19/2017 MyC Refill [address], [address] [place] [address] [place] [address] [place], [place] [id number] Refill Request Social History Tobacco Use Types [...] review and advise Obed RN Nurse Triage S COUNTER SALESPERSON * Telephone Encounter - Manuela Tapia RN - 08/19/2017 6:[facility] Original authorizing provider: MD Greta Galindo would like a refill of the following medications: sertraline (ZOLOFT) 100 MG tablet [Nicole Foreman MD] Preferred pharmacy: [facility] [address] [place] [address] Comment: S COUNTER SALESPERSON documented in this encounter Plan of Treatment Not on file documented as of this encounter Visit Diagnoses Diagnosis Major depressive disorder, recurrent episode, mild (H24) Major depressive disorder, recurrent episode, mild Anxiety Anxiety state, unspecified documented in this encounter Additional Health Concerns Assessment Noted Time PHQ-9 Depression Total Score: 6 08/20/20 17 10:59 AM PARTS COUNTER SALESPERSON documented as of this encounter Care Teams Union Steward Relationship Specialty Start Date End Date Nicole Foreman MD PCP - General Family Practice 03/24/12 10/24/19 Gomez Hubbard PA-C [address] [place] [address] PCP - Assigned PCP 10/30/14 12/01/18 Gomez Hubbard PA-C 94360 SONIA MATTHEWS [address] PCP - General Physician Brown Sourer - Medical 10/25/19 Gomez Hubbard PA-C 98215 SONIA MATTHEWS [address]3602 Assigned PCP 10/30/14 04/12/21 documented as of this encounter
--- OUTSIDE RECORDS SUMMARY | 2024-04-02 10:17 | XMS_ITS | Encounter Summary ---
Author Organization [facility] Address [address] [place] [address]. [place] [address] Care Team Providers Care Stamp Analyst Name Role Phone Nicole Foreman MD Primary Care Provider Gomez Hubbard PA-C Unavailable + [phone] Gomez Hubbard PA-C Unavailable + [phone] Gomez Hubbard PA-C Primary Care Provider Reason for Visit * Reason Onset Date Comments Refill Request 11/04/2016 Control Encounter Details Date Type Department Care Team (Late st Contact Info) Description 11/04/2016 MyC Refill [address], [address] [place] [address] [place] [id number] [place] [address] Refill Request ( Control) Social [...] Blake RN, BS Clinical Nurse Triage . RT EXPORT COORDINATOR * Telephone Encounter - Gomez Hubbard PA-C - 11/05/2016 10:51 AM IMPORT EXPORT COORDINATOR Have her come in for lab STD screen please then we can do Rx. PAP is up to date. Looks like she will be due this spring for med check anyway. I'll restart her with 90 day supply and we can do med check for everything then. Gomez RT EXPORT COORDINATOR * Telephone Encounter - Manuela Tapia RN - 11/05/2016 8:04 AM CST [place] Last Written Prescription Date: 01/24/2016 Last Fill Quantity: 91, # refills: 0 Last Office Visit with [facility], [facility] or [facility] prescribing provider: 08/16/2016 Routing refill request to provider for review/approval because: A break in medication Patient due for -CHLAMYDIA screening Manuela Tapia RN RT EXPORT COORDINATOR * Telephone Encounter - Manuela Tapia RN - 11/05/2016 8:02 AM [facility] Original authorizing provider: MD Greta Galindomell would like a refill of the following medications: levonorgestrel-ethinyl estradiol (SEASONALE) 0.15-0.03 MG per tablet [Nicole Foreman MD] Preferred pharmacy: [facility] [id number] [place] [address] Comment: RT EXPORT COORDINATOR documented in this encounter Plan of Treatment Not on file documented as of this encounter Visit Diagnoses Diagnosis Encounter for other general counseling or advice on contraception- Primary Seasonal allergic rhinitis Allergic rhinitis, cause unspecified documented in this encounter Additional Health Concerns Assessment Noted Time PHQ-9 Depression Total Score: 8 08/17/20 16 2:29 PM IMPORT EXPORT COORDINATOR documented as of this encounter Care Teams Stamp Analyst Relationship Specialty Start Date End Date Nicole Foreman MD PCP - General Family Practice 03/24/12 10/24/19 Gomez Hubbard PA-C [id number] [address] [id number] PCP - Assigned PCP 10/30/14 12/01/18 Gomez Hubbard PA-C [id number] [address] [id number] PCP - General Physician [employer] Operator - Medical 10/25/19 Gomez Hubbard PA-C [id number] [address] [id number] Assigned PCP 10/30/14 04/12/21 documented as of this encounter
== END 2024-03-30 07:56 | disposition home or self-care (01) ==
PROVIDERS: Visit Provider Physician Assistant
DX: Z13.220 Encounter for screening for lipoid disorders (principal); Z13.1 Encounter for screening for diabetes mellitus
CPT/HCPCS: 80061; 82947